=== PATIENT | male | born 1960 ===

== ENCOUNTER → 2019-09-09 | Outpatient (CLI) | payer OTHER ==
[2019-09-09 18:31] LABS: ALBUMIN 4.7 gm/dL (3.5-5.0); BILIRUBIN,TOTAL 0.7 mg/dL (0.0-1.0); CHOLESTEROL RISK RATIO 3.9; CREATININE, serum 0.61 (0.66-1.25); POTASSIUM 5.2 mmol/L (3.4-5.0); TOTAL PROTEIN 7.6 gm/dL (6.4-8.2)
[2019-09-09 18:45] LABS: BASO % 0.3 % (0.0-2.0); EOS # 0.1 (0.0-0.7); EOS % 2.4 % (0-4.0); GRAN # 2.3 (1.4-6.5); GRAN % 40.3 % (42.2-75.2); HEMATOCRIT 51.4 % (42.0-52.0); HEMOGLOBIN 17.3 g/dl (13.5-18.0); LYMPH # 2.8 (1.2-3.4); LYMPH % 48.3 % (20.0-51.0); MEAN CELL VOLUME 95 fl (80.0-100.0); MEAN CORPUSCULAR HEMOGLOBIN 32 pg (27.0-31.0); MEAN CORPUSCULAR HGB CONC 34 g/dl (33.0-37.0); MEAN PLATELET VOLUME 12.9 fl (7.4-10.4); MONO # 0.5 (0.1-0.6); MONO % 8.5 % (1.7-9.3); PLATELET COUNT 204 K/mm3 (130-400); RED BLOOD COUNT 5.41 M/mm3 (4.20-5.60); REDCELL DISTRIBUTION WIDTH-CV 12.4 % (11.5-14.5)
[2019-09-09 19:14] LABS: URINE PROTEIN:CREAT RATIO 0.16 (0.00-0.14)
== END ==
LOC: ZCOL.LAB 17:51
PROVIDERS: Family Medicine
DX: E11.40 Type 2 diabetes mellitus with diabetic neuropathy, unspecified (principal)

== ENCOUNTER 2021-07-14 18:41 | Emergency (ER) | payer OTHER ==
[~2021-07-14] VITALS: Ht 170.2 cm; Wt 73.6 kg
[2021-07-14 19:02] VITALS: TEMP 98.3
[2021-07-14 19:28] LABS: COLLECTION METHOD CLEAN CATCH
[2021-07-14 19:31] LABS: BASO % 0.4 % (0.0-2.0); EOS # 0.2 (0.0-0.7); EOS % 1.9 % (0-4.0); GRAN # 3.6 (1.4-6.5); GRAN % 44.9 % (42.2-75.2); HEMOGLOBIN 17.7 g/dl (13.5-18.0); LYMPH # 3.7 (1.2-3.4); MEAN CELL VOLUME 94 fl (80.0-100.0); MEAN CORPUSCULAR HEMOGLOBIN 32 pg (27.0-31.0); MEAN CORPUSCULAR HGB CONC 34 g/dl (33.0-37.0); MEAN PLATELET VOLUME 9.6 fl (7.4-10.4); MONO # 0.5 (0.1-0.6); MONO % 6.5 % (1.7-9.3); PLATELET COUNT 221 K/mm3 (130-400); RED BLOOD COUNT 5.61 M/mm3 (4.20-5.60); REDCELL DISTRIBUTION WIDTH-CV 11.9 % (11.5-14.5)
[2021-07-14 19:34] LABS: PH 6 (5-8); SQUAMOUS EPITHELIAL None Seen /hpf; URINE APPEARANCE Clear; URINE BACTERIA None Seen /hpf; URINE BILIRUBIN Negative (NEGATIVE); URINE BLOOD Negative (NEGATIVE); URINE COLOR Straw; URINE GLUCOSE 3+ (NEGATIVE); URINE KETONE Negative (NEGATIVE); URINE LEUKOCYTE ESTERASE Negative (NEGATIVE); URINE NITRATE Negative (NEGATIVE); URINE PROTEIN(semi-quant) Negative (NEGATIVE); URINE RBC 0-2 /hpf; URINE UROBILINOGEN Negative (NEGATIVE)
[2021-07-14 19:39] LABS: HEMATOCRIT 52.6 % (42.0-52.0)
[2021-07-14 19:42] LABS: ALANINE AMINOTRANSFERASE 21 U/L (4-49); ALBUMIN 4.2 gm/dL (3.5-5.0); ALKALINE PHOSPHATASE 105 U/L (50-136); ANION GAP 9 mmol/L (7-16); AST,SGOT 25 U/L (15-37); BILIRUBIN,TOTAL 0.2 mg/dL (0.0-1.0); BLOOD UREA NITROGEN 21 mg/dL (9-20); CALCIUM 9.1 mg/dL (8.4-10.2); CARBON DIOXIDE 23 mmol/L (22-30); CHLORIDE 103 mmol/L (98-107); CREATININE, serum 0.71 (0.66-1.25); GLUCOSE 249 mg/dL (74-106); POTASSIUM 4.4 mmol/L (3.4-5.0); SODIUM 135 mmol/L (137-145); TOTAL PROTEIN 7.2 gm/dL (6.4-8.2)
[2021-07-14 19:59] LABS: TROPONIN-I < 0.012 ng/mL (0.000-0.035)
[2021-07-14 21:11] VITALS: BP 118/70; PULSE 80
== END 2021-07-14 21:11 | disposition home or self-care (01) ==
LOC: COL.ER 18:41
PROVIDERS: Physician Assistant
DX: I95.1 Orthostatic hypotension (principal); E11.9 Type 2 diabetes mellitus without complications; I10 Essential (primary) hypertension; F17.210 Nicotine dependence, cigarettes, uncomplicated
CPT/HCPCS: J7030

== ENCOUNTER 2022-02-24 06:15 | Day surgery (SDC) | payer OTHER ==
[~2022-02-24] VITALS: Ht 170.2 cm; Wt 71.1 kg
[2022-02-24] MEDS ORDERED: GLUCOPHAGE1000 MG PO (06:54)
[2022-02-24] MEDS ORDERED: PRINIVIL20 MG PO (06:55)
[2022-02-24] MEDS ORDERED: JARDIANCE10 (06:55)
[2022-02-24] MEDS ORDERED: CYMBALTA 30MG30 MG PO (06:56)
[2022-02-24] MEDS ORDERED: LIPITOR20 MG PO (06:56)
[2022-02-24] MEDS ORDERED: MOBIC15 MG PO (06:57)
[2022-02-24] MEDS ORDERED: NOVOLOG FLEX100 U/ML SQ (06:58)
[2022-02-24] MEDS ORDERED: LEVEMIR FLEX100 U/ML SQ (06:59)
[2022-02-24] MEDS ORDERED: ASPIRIN E.C. 8181 MG PO (06:59)
[2022-02-24 07:21] VITALS: BP 152/74; PULSE 67; TEMP 97.9
[2022-02-24 08:20] VITALS: BP 107/57; PULSE 69; TEMP 97.6
--- NOTE | 2022-02-24 08:20 | NUR ---
PT TO BAY 3 PER CART FROM [facility]OM. RECEIVED REPORT FROM [facility] [place]. VS OBTAINED. PT REQUESTING COFFEE. REORIENTED PT TO ROOM AND CALL LIGHT. VERBALIZED UNDERSTANDING. CALL LIGHT WITHIN REACH. WILL CONTINUE TO MONITOR PT.
[2022-02-24 08:35] VITALS: BP 112/68; PULSE 65
[2022-02-24 08:50] VITALS: BP 140/68; PULSE 64
--- NOTE | 2022-02-24 08:50 | NUR ---
PT DENIES ANY NEEDS. READY FOR DISCHARGE.
--- NOTE | 2022-02-24 09:00 | NUR ---
DISCHARGE EDUCATION COMPLETED WITH PT AND HIS DAUGHTER. THEY VERBALIZED UNDERSTANDING OF HOME AND FOLLOW UP CARE. ALL QUESTIONS ANSWERED. DISCHARGE PAPERWORK GIVEN TO PT'S DAUGHTER.
--- NOTE | 2022-02-24 09:10 | NUR ---
PT OFF UNIT PER WHEELCHAIR. DISCHARGE TO HOME WITH DAUGHTER PER PERSONAL VEHICLE.
--- NOTE | 2022-02-24 11:24 | NUR ---
PT TOLERATING COFFEE WITHOUT DIFFICULTY. DENIES WANTING ANYTHING TO EAT. DENIES ANY OTHER NEEDS AT THIS TIME. WILL CONTINUE TO MONITOR PT.
== END 2022-02-24 09:10 | disposition home or self-care (01) ==
LOC: SDCO 06:15
DX: Z12.11 Encounter for screening for malignant neoplasm of colon (principal); D12.5 Benign neoplasm of sigmoid colon; F17.210 Nicotine dependence, cigarettes, uncomplicated
CPT/HCPCS: J2704; J7120

== ENCOUNTER → 2022-06-22 | Outpatient (CLI) | payer OTHER ==
[~2022-06-22] MED LIST: ASPIRIN E.C. 8181 MG PO; CEPHALEXIN500 M1 PO; CYMBALTA 30MG30 MG PO; GLUCOPHAGE1000 MG PO; JARDIANCE10; LEVEMIR FLEX100 U/ML SQ; LIPITOR20 MG PO; MOBIC15 MG PO; NORCO 325 MG-51 TAB PO; NOVOLOG FLEX100 U/ML SQ; PRINIVIL20 MG PO
== END ==
LOC: COL.RAD 07:14
DX: M75.122 Complete rotator cuff tear or rupture of left shoulder, not specified as traumatic (principal); M75.52 Bursitis of left shoulder; M62.512 Muscle wasting and atrophy, not elsewhere classified, left shoulder

== ENCOUNTER 2022-06-29 09:25 | Day surgery (SDC) | payer OTHER ==
[~2022-06-29] VITALS: Ht 172.7 cm; Wt 70.3 kg
[~2022-06-29 09:25] MED LIST changes: -CEPHALEXIN500 M1 PO; -NORCO 325 MG-51 TAB PO
[2022-06-29 10:40] VITALS: BP 150/99; PULSE 71; TEMP 98
[2022-06-29] MEDS ORDERED: CEPHALEXIN500 M1 PO (12:11)
[2022-06-29] MEDS ORDERED: NORCO 325 MG-51 TAB PO (12:11)
[2022-06-29 12:25] VITALS: BP 164/86; PULSE 65; TEMP 97.6
--- NOTE | 2022-06-29 12:25 | NUR ---
PT TO BAY 2 PER CART FROM PACU. REPORT RECEIVED. VS OBTAINED. PT TOLERATING WATER. PT DENIES ANY NEEDS AT THIS TIME.
[2022-06-29 12:40] VITALS: BP 142/82; PULSE 63
[2022-06-29 12:55] VITALS: BP 154/75; PULSE 63
[2022-06-29 13:04] VITALS: BP 156/93; PULSE 65; TEMP 97.2
--- NOTE | 2022-06-29 13:25 | NUR ---
1240-TOLERATING COFFEE. DENIES ANY PAIN AT THIS TIME. 1305-IV DC'D. PT TOLERATED WELL. 1310-DISCHARGE EDUCATION COMPLETED WITH PT. VERBALIZED UNDERSTANDING OF HOME AND FOLLOW UP CARE. ALL QUESTIONS ANSWERED. DISCHARGE PAPERWORK GIVEN TO PT. 1325-PT OFF UNIT PER WHEELCHAIR. PT DISCHARGE TO HOME WITH DAUGHTER PER PERSONAL VEHICLE.
== END 2022-06-29 13:25 | disposition home or self-care (01) ==
LOC: SDCO 09:25
DX: M75.102 Unspecified rotator cuff tear or rupture of left shoulder, not specified as traumatic (principal); F17.210 Nicotine dependence, cigarettes, uncomplicated
CPT/HCPCS: A4566; A4619; J0690; J1100; J2250; J2405; J2704; J2795; J3010; J7120